=== PATIENT | female | born 2000 | race Caucasian/White ===

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

== ENCOUNTER 2022-04-22 08:59 | Emergency (ER) | payer OTHER ==
[2022-04-22 09:09] VITALS: BP 114/72; PULSE 74; RESP 17; TEMP 98; BMI 25.4
== END 2022-04-22 11:19 | disposition home or self-care (01) ==
LOC: JERFT 08:59 → JER 08:59 → JERFT 11:19
DX: M79.602 Pain in left arm (principal)
CPT/HCPCS: 93971; 99283-25